=== PATIENT | male | born 1980 | race Caucasian/White ===

== ENCOUNTER 2019-12-14 16:34 | Inpatient (IN) ==
[2019-12-14 17:13] LABS: Hematocrit 40 % (42-52); Hemoglobin 13.6 g/dL (14.0-18.0); Mean Corpuscular HGB Conc 34 g/dL (31-36); Mean Corpuscular Hemoglobin 29 pg (27-31); Mean Corpuscular Volume 83 fL (80-94); Mean Platelet Volume 8.5 fL (7.4-10.4); Platelet Count 373 10^3/uL (150-450); Red Blood Count 4.78 10^6 /uL (4.18-5.48); Red Cell Distribution Width 15 % (10-15); White Blood Count 13.9 10^3/uL (3.5-10.8)
[2019-12-14 17:32] LABS: Troponin I 0.01 ng/mL (<0.03)
[2019-12-14 17:33] LABS: Potassium 4.1 mmol/L (3.5-5.0)
[2019-12-14 17:34] LABS: Albumin 3.5 g/dL (3.2-5.2); Albumin/Globulin Ratio 1.1 (1-3); BUN/Creatinine Ratio 15.8 (8-20); Calcium 8.7 mg/dL (8.6-10.3); EGFR Non-African American 82.7 (>60); Globulin 3.1 g/dL (2-4); Total Protein 6.6 g/dL (6.4-8.9)
[2019-12-14 17:57] LABS: ABS Basophils 0.1 10^3/ul (0-0.2); ABS Eosinophils 0.3 10^3/ul (0-0.6); ABS Lymphocytes 1.7 10^3/ul (1.0-4.8); ABS Neutrophils 10.9 10^3/ul (1.5-7.7); Eosinophil % 1.8 %; Lymphocyte % 12.1 %
[2019-12-14] MEDS ORDERED: Iohexol 350 (CONTRAST) 500 ML MDV IV ONE (18:16)
[2019-12-14] MEDS: Heparin 5000 UNITS/ML 1 mL VIAL IV SCH (19:56)
[2019-12-14] MEDS: Heparin DRIP 25,000 UNITS BAG 25,000 UNITS/500 ML BAG IV SCH (19:57)
[2019-12-14] MEDS ORDERED: Ondansetron 4 mg VIAL 2 MG/ML 2 ml VIAL IV PRN (20:44)
[2019-12-14] MEDS ORDERED: Senna TAB 8.6 mg TAB PO PRN (20:44)
[2019-12-14 23:35] LABS: Hepatitis B Surface Antigen Nonreactive (Nonreactive)
[2019-12-14 23:40] LABS: Hepatitis A Ab IgM Negative (Negative)
[2019-12-14 23:41] LABS: Hepatitis B Core IgM Nonreactive (Nonreactive)
[2019-12-14] MEDS ORDERED: Nicotine GUM 4MG FRUIT FLAVOR PO PRN (23:58)
[2019-12-15] MEDS: Heparin 5000 UNITS/ML 1 mL VIAL IV SCH ×2 (03:09→16:43)
[2019-12-15 05:11] LABS: Hematocrit 37 % (42-52); Hemoglobin 12.5 g/dL (14.0-18.0); Mean Corpuscular HGB Conc 34 g/dL (31-36); Mean Corpuscular Hemoglobin 28 pg (27-31); Mean Corpuscular Volume 84 fL (80-94); Mean Platelet Volume 8.6 fL (7.4-10.4); Platelet Count 380 10^3/uL (150-450); Red Blood Count 4.43 10^6 /uL (4.18-5.48); Red Cell Distribution Width 15 % (10-15)
[2019-12-15 05:39] LABS: Albumin 3.2 g/dL (3.2-5.2); Albumin/Globulin Ratio 1.1 (1-3); BUN/Creatinine Ratio 15.2 (8-20); Calcium 8.3 mg/dL (8.6-10.3); EGFR African American 102.4 (>60); EGFR Non-African American 84.6 (>60); Globulin 2.8 g/dL (2-4); Potassium 3.9 mmol/L (3.5-5.0); Total Bilirubin 0.7 mg/dL (0.2-1.0)
[2019-12-15] MEDS ORDERED: cefTRIAXone 2 GM ADDV.VIAL 2 GM in NS 0.9% 100 ml BAG 100 ML IV SCH (08:00)
[2019-12-15] MEDS ORDERED: DOXYcycline 100 MG in NS 0.9% 250 ml 250 ML IVPB SCH (08:30)
[2019-12-15 08:55] LABS: ABS Basophils 0.1 10^3/ul (0-0.2); ABS Eosinophils 0.4 10^3/ul (0-0.6); ABS Lymphocytes 3.2 10^3/ul (1.0-4.8); ABS Monocytes 1.4 10^3/ul (0-0.8); Eosinophil % 2.7 %; Lymphocyte % 21.1 %
[2019-12-15] MEDS: Heparin DRIP 25,000 UNITS BAG 25,000 UNITS/500 ML BAG IV SCH (12:16)
[2019-12-15 13:56] LABS: Hepatitis C Antibody Negative (Negative)
[2019-12-15 18:04] VITALS: BP 119/80
[2019-12-17 20:41] LABS: Phospholipid Ab IgG < 9.4 GPL; Phospholipid Ab IgM, S < 9.4 MPL
[2019-12-21 00:17] LABS: Prothrombin 20210 Mutation Negative (Negative)
== END 2019-12-15 19:06 | disposition short-term general hospital (02) | DRG 176 ==
LOC: ED 16:34 → ICU 20:44
PROVIDERS: ADMIT Internal Medicine; ATTEND Internal Medicine